=== PATIENT | female | born 1970 | race Two or more races ===

== ENCOUNTER 2020-04-07 11:10 | Emergency (ER) | payer OTHER ==
[2020-04-07 11:19] VITALS: BP 125/79; PULSE 66; TEMP 98.5; BMI 24.9
--- NOTE | 2020-04-07 11:41 | PDOC ---
History of Present Illness - General Chief Complaint: Eye Problem Stated Complaint: HURT EYE Time Seen by Provider: 04/07/20 11:33 History Source: Patient Exam Limitations: No Limitations - History of Present Illness Initial Comments: 04/07/20 11:37 49-year-old female with complaints of of a broken blood vessel to her left thigh. Patient denies any injury use of contacts, excessive coughing, or exerting herself. Patient denies usage of blood thinners or easy bleeding. Is this a multiple visit Asthma Patient?: No Timing/Duration: unsure Associated Symptoms: reports: denies symptoms Past History - Travel History Traveled outside of the country in the last 30 days: No Close contact w/someone who was outside of country & ill: No - Medical History Allergies/Adverse Reactions: Allergies Allergy/AdvReac Type Severity Reaction Status Date / Time No Known Allergies Allergy Verified 04/07/20 11:14 Asthma: No Cancer: No Cardiac Disorders: No COPD: No Diabetes: No HTN: No Seizures: No Thyroid Disease: No - Reproductive History Is Patient Now?: No (#): 3 Para: 2 Cervical CA: No Dysfunctional Uterine Bleeding: No Ectopic : No Endometrial CA: No Polycystic Ovaries: No Therapeutic (s) & number: No Spontaneous : 0 - Immunization History Immunization Up to Date: Yes - Psycho-Social/Smoking History Patient Lives Alone: No Lives with/in: spouse/SO Smoking Status: No Smoking History: Never smoked Years of Tobacco Use: 0 Have you smoked in the past 12 months: No Number of Cigarettes Smoked Daily: 0 Cigars Per Day: 0 - Substance Abuse Hx (Audit-C & DAST Scrn) How often the patient has a drink containing alcohol: Never Score: In Men: 4 or > Positive; In Women: 3 or > Positive: 0 Screen Result (Pos requires Nsg. Audit-10AR): Negative In the last yr the pt used illegal drug/Rx for NonMed reason: No Score: Yes response is considered Positive: 0 Screen Result (Positive result requires Nsg. DAST-10): Negative Review of Systems - Review of Systems Able to Perform ROS?: No Is the patient limited Kinyarwanda proficient: No Constitutional: No: Symptoms Reported HEENTM: Yes: Other (Redness to left eye). No: Eye Pain, Blurred Vision Respiratory: No: Symptoms reported Cardiac (ROS): No: Symptoms Reported ABD/GI: No: Symptoms Reported : No: Symptoms Reported Musculoskeletal: No: Symptoms Reported Integumentary: No: Symptoms Reported Neurological: No: Symptoms reported Hematologic/Lymphatic: No: Symptoms Reported *Physical Exam - Vital Signs Last Vital Signs Temp Pulse Resp BP Pulse Ox 98.5 F 66 18 125/79 98 04/07/20 11:15 04/07/20 11:15 04/07/20 11:15 04/07/20 11:15 04/07/20 11:15 - Physical Exam General Appearance: Yes: Nourished, Appropriately Dressed. No: Apparent Distress HEENT: positive: EOMI, CHRIS, Other (Noted a small raised blood vessel above the left pupil. Surrounding area with subconjunctival hemorrhage. ). negative: Pale Conjunctivae Neck: positive: Supple Extremity: positive: Normal Inspection Integumentary: positive: Normal Color, Warm, Moist Neurologic: positive: Motor Strength 5/5 (ambulatory) Medical Decision Making - Medical Decision Making 04/07/20 11:41 CC: s Left eye with broken blood vessel noted this morning upon awakening. Patient states irritation 1 blinking but otherwise has no visual complaints, headache, or dizziness. Exam: Patient with subconjunctival hemorrhage above the left pupil. Otherwise normal physical exam. Plan: We will discharge with artificial tears based on patient's clinical presentation and complaints Discharge - Discharge Information Problems reviewed: Yes Clinical Impression/Diagnosis: Subconjunctival hemorrhage of left eye Condition: Good Disposition: HOME - Follow up/Referral - Patient Discharge Instructions Patient Printed Discharge Instructions: DI for Subconjunctival Hemorrhage Additional Instructions: Please avoid rubbing the area or placing other things your eyes besides the artificial tears. It should resolve within a few days- weeks Print Language: GEORGIAN - Post Discharge Activity
== END 2020-04-07 12:06 | disposition home or self-care (01) ==
LOC: JERFT 11:10
DX: H11.32 Conjunctival hemorrhage, left eye (principal)
CPT/HCPCS: 99283-25

== ENCOUNTER 2021-02-07 13:48 | Emergency (ER) | payer OTHER ==
[2021-02-07 14:00] VITALS: BP 122/78; PULSE 69; TEMP 97.5; BMI 24.0
== END 2021-02-07 17:18 | disposition left against medical advice (07) ==
LOC: JER 13:48
DX: R10.13 Epigastric pain (principal)
CPT/HCPCS: 99281-25

== ENCOUNTER 2021-02-26 00:48 | Emergency (ER) | payer OTHER ==
[2021-02-26 01:16] VITALS: BP 121/82; PULSE 100; TEMP 97.8; BMI 25.7
[2021-02-26] MEDS ORDERED: FAMOTIDINE 20 MG TABLET PO ONE (01:42)
[2021-02-26] MEDS ORDERED: MAG HYDROX/AL HYDROX/SIMETH -MYLANTA- ORAL SUSPENSION PO ONE (01:42)
[2021-02-26] MEDS ORDERED: MAG HYDROX/AL HYDROX/SIMETH 30 ML UNIT-DOSE CUP ONE (01:47)
[2021-02-26] MEDS ORDERED: FAMOTIDINE 20 MG TABLET ONE (01:47)
[2021-02-26 02:41] LABS: CHLORIDE 108 mmol/L (98-107); SODIUM 139 mmol/L (136-145)
[2021-02-26 02:43] LABS: CALCIUM 8.5 mg/dL (8.5-10.1)
[2021-02-26 02:44] LABS: ALBUMIN 3.8 g/dl (3.4-5.0); ANION GAP 6 MMOL/L (8-16); BLOOD UREA NITROGEN 16.9 mg/dL (7-18); CO2 26 mmol/L (21-32); GLUCOSE,RANDOM 102 mg/dL (74-106)
[2021-02-26 02:47] LABS: CREATININE 0.6 mg/dL (0.55-1.3); SGOT/AST 64 U/L (15-37); SGPT/ALT 63 U/L (13-61)
[2021-02-26 02:49] LABS: BILIRUBIN,TOTAL 0.2 mg/dL (0.2-1); TOT PROT 7.7 g/dl (6.4-8.2)
[2021-02-26 02:50] LABS: ALK PHOS 126 U/L (45-117)
[2021-02-26 03:02] LABS: LIPASE 148 U/L (73-393)
[2021-02-26] MEDS ORDERED: SUCRALFATE 1 GM TABLET (FP) PO SCH (10:00)
== END 2021-02-26 03:38 | disposition home or self-care (01) ==
LOC: JER 00:48
DX: R14.1 Gas pain (principal)
CPT/HCPCS: 36415; 71046-TC-FY; 80053; 82550; 83690; 84484; 93005; 93010; 99285-25

== ENCOUNTER 2021-08-03 04:57 | Emergency (ER) | payer OTHER ==
[2021-08-03 05:12] VITALS: BP 107/65; PULSE 68; TEMP 97.8; BMI 24.0
== END 2021-08-03 05:37 | disposition left against medical advice (07) ==
LOC: JER 04:57
DX: R07.9 Chest pain, unspecified (principal)
CPT/HCPCS: 99281-25

== ENCOUNTER 2022-05-29 12:55 | Emergency (ER) | payer OTHER ==
[2022-05-29 13:04] VITALS: BP 104/69; PULSE 71; RESP 18; TEMP 98.4; BMI 23.1
[2022-05-29] MEDS ORDERED: ACETAMINOPHEN 1000 MG/100 ML BAG IVPB ONE (13:51)
[2022-05-29] MEDS ORDERED: LACTATED RINGERS SOLUTION 1000 ML INFUS.BAG IV ONE (13:51)
[2022-05-29] MEDS ORDERED: ACETAMINOPHEN INJECTION 100 ML IVPB ONE (14:15)
[2022-05-29 16:01] LABS: BASO % 0.5 % (0-2.0); EOS % 1.9 % (0-4.5); HEMATOCRIT 41.1 % (32.4-45.2); HEMOGLOBIN 13.2 GM/dL (10.7-15.3); LYMPH % 29.6 % (8-40); MCH 30.6 pg (25.7-33.7); MCHC 32.1 g/dl (32.0-36.0); MEAN CELL VOLUME 95.4 fl (80-96); MEAN PLT VOLUME 8.8 fl (7.5-11.1); MONO % 6.4 % (3.8-10.2); NEUT % 61.6 % (42.8-82.8); PLATELET COUNT 229 10^3/uL (134-434); RBC 4.31 M/mm3 (3.60-5.2); RDW 13.1 % (11.6-15.6); WHITE BLOOD COUNT 6.5 K/mm3 (4.0-10.0)
[2022-05-29 16:13] LABS: INR 1.09 (0.83-1.09); PROTHROMBIN TIME (PATIENT) 12.5 SEC (9.7-13.0)
[2022-05-29 16:16] LABS: ACTIVATED PTT 29.1 SECONDS (25.2-36.5)
[2022-05-29 16:19] LABS: ALBUMIN 3.4 g/dl (3.4-5.0); BLOOD UREA NITROGEN 7.6 mg/dL (7-18); MAGNESIUM 2.3 mg/dL (1.8-2.4)
[2022-05-29 16:22] LABS: EPI CELLS 23 /uL (0-25.1); HYALINE CASTS 0 /uL (0-3.1); PH,URINE 6.5 (5.0-8.0); URINE APPEARANCE CLEAR; URINE BACTERIA 234 /uL (0-1359); URINE BILIRUBIN NEGATIVE (NEGATIVE); URINE COLOR YELLOW; URINE GLUCOSE (UA) NEGATIVE (NEGATIVE); URINE KETONE NEGATIVE (NEGATIVE); URINE LEUK ESTERASE 1+ (NEGATIVE); URINE NITRITE NEGATIVE (NEGATIVE); URINE PROTEIN NEGATIVE (NEGATIVE); URINE RBC 33 /uL (0-23.9); URINE UROBILINOGEN 0.2 mg/dL (0.2-1.0); URINE WBC 28 /uL (0-25.8)
[2022-05-29 16:22] LABS: CREATININE 0.6 mg/dL (0.55-1.3)
[2022-05-29 16:23] LABS: BILIRUBIN,TOTAL 0.5 mg/dL (0.2-1)
== END 2022-05-29 18:25 | disposition home or self-care (01) ==
LOC: JER 12:55
PROC: 3E0333Z Introduction of Anti-inflammatory into Peripheral Vein, Percutaneous Approach (ICD-10-PCS; principal; 2022-05-29)
DX: K52.9 Noninfective gastroenteritis and colitis, unspecified (principal)
CPT/HCPCS: 0241U-QW; 36415; 74177-TC; 80053; 81003; 83735; 85025; 85610; 85730; 87040; 87086; 93005; 93010; 99285-25; Q9967

== ENCOUNTER 2023-03-10 02:05 | Emergency (ER) | payer OTHER ==
[2023-03-10 02:12] VITALS: BP 102/66; PULSE 65; RESP 18; TEMP 97.9; BMI 24.0
[2023-03-10] MEDS ORDERED: ACETAMINOPHEN 1000 MG/100 ML BAG IVPB ONE (02:35)
[2023-03-10] MEDS ORDERED: ACETAMINOPHEN INJECTION 100 ML IVPB ONE (02:51)
[2023-03-10 03:49] LABS: BASO % 0.8 % (0-2.0); EOS % 3.4 % (0-4.5); HEMATOCRIT 39.8 % (32.4-45.2); HEMOGLOBIN 13.2 GM/dL (10.7-15.3); LYMPH % 46.5 % (8-40); MCH 31.3 pg (25.7-33.7); MCHC 33.2 g/dl (32.0-36.0); MEAN CELL VOLUME 94.3 fl (80-96); MEAN PLT VOLUME 8.2 fl (7.5-11.1); MONO % 5.2 % (3.8-10.2); NEUT % 44.1 % (42.8-82.8); PLATELET COUNT 253 10^3/uL (134-434); RBC 4.23 M/mm3 (3.60-5.2); RDW 13.6 % (11.6-15.6); WHITE BLOOD COUNT 7.7 K/mm3 (4.0-10.0)
[2023-03-10 04:08] LABS: POTASSIUM 4.8 mmol/L (3.5-5.1)
[2023-03-10 04:10] LABS: ALBUMIN 3.6 g/dl (3.4-5.0); CALCIUM 8.9 mg/dL (8.5-10.1)
[2023-03-10 04:11] LABS: BLOOD UREA NITROGEN 15.4 mg/dL (7-18)
[2023-03-10 04:14] LABS: CREATININE 0.6 mg/dL (0.55-1.3)
[2023-03-10 04:15] LABS: BILIRUBIN,TOTAL 0.4 mg/dL (0.2-1); TOT PROT 7.3 g/dl (6.4-8.2)
== END 2023-03-10 05:10 | disposition home or self-care (01) ==
LOC: JER 02:05
PROC: 3E033NZ Introduction of Analgesics, Hypnotics, Sedatives into Peripheral Vein, Percutaneous Approach (ICD-10-PCS; principal; 2023-03-10)
DX: R07.89 Other chest pain (principal); R00.1 Bradycardia, unspecified; R11.0 Nausea
CPT/HCPCS: 36415; 71046-TC-FY; 80053; 84439; 84443; 84484; 85025; 93005; 93010; 99285-25

== ENCOUNTER 2023-06-20 17:08 | Inpatient (IN) | payer OTHER ==
[2023-06-20 17:41] VITALS: BMI 25.4
[2023-06-20] MEDS ORDERED: SODIUM CHLORIDE 1,000 ML IV SCH (18:00)
[2023-06-20] MEDS ORDERED: ACETAMINOPHEN 1000 MG/100 ML BAG IVPB ONE (19:00)
[2023-06-20] MEDS ORDERED: ACETAMINOPHEN INJECTION 100 ML IVPB ONE (19:04)
[2023-06-20 20:27] LABS: BASO % 0.2 % (0-2.0); EOS % 0.4 % (0-4.5); HEMATOCRIT 42.3 % (32.4-45.2); HEMOGLOBIN 13.6 GM/dL (10.7-15.3); MCH 30.6 pg (25.7-33.7); MCHC 32.2 g/dl (32.0-36.0); MEAN CELL VOLUME 95.3 fl (80-96); MEAN PLT VOLUME 8.5 fl (7.5-11.1); MONO % 3.5 % (3.8-10.2); NEUT % 81.9 % (42.8-82.8); PLATELET COUNT 258 10^3/uL (134-434); RBC 4.44 M/mm3 (3.60-5.2); RDW 13.4 % (11.6-15.6); WHITE BLOOD COUNT 12.3 K/mm3 (4.0-10.0)
[2023-06-20 20:32] LABS: INR 1.09 (0.83-1.09); PROTHROMBIN TIME (PATIENT) 12.6 SEC (9.7-13.0)
[2023-06-20 20:35] LABS: ACTIVATED PTT 28.5 SECONDS (25.2-36.5)
[2023-06-20 20:36] LABS: CHLORIDE 105 mmol/L (98-107); POTASSIUM 4.2 mmol/L (3.5-5.1); SODIUM 138 mmol/L (136-145)
[2023-06-20 20:37] LABS: CALCIUM 8.9 mg/dL (8.5-10.1)
[2023-06-20 20:38] LABS: ALBUMIN 3.5 g/dl (3.4-5.0); ANION GAP 8 mmol/L (4-13); CO2 26 mmol/L (21-32)
[2023-06-20 20:39] LABS: BLOOD UREA NITROGEN 21.1 mg/dL (7-18); GLUCOSE,RANDOM 89 mg/dL (74-106)
[2023-06-20 20:41] LABS: CREATININE 0.8 mg/dL (0.55-1.3); SGOT/AST 23 U/L (15-37); SGPT/ALT 32 U/L (13-61)
[2023-06-20 20:42] LABS: CHOLESTEROL 169 mg/dL (50-200)
[2023-06-20 20:44] LABS: BILIRUBIN,TOTAL 0.5 mg/dL (0.2-1); LDL CHOLESTEROL (ONLY SJRH) 86 mg/dL (5-100)
[2023-06-20 20:45] LABS: ALK PHOS 105 U/L (45-117); HDL CHOLESTEROL 61 mg/dL (40-60)
[2023-06-20 21:12] LABS: EPI CELLS 7 /uL (0-25.1); HYALINE CASTS 0 /uL (0-3.1); PH,URINE 7.5 (5.0-8.0); URINE APPEARANCE CLEAR; URINE BACTERIA 71 /uL (0-1359); URINE BILIRUBIN NEGATIVE (NEGATIVE); URINE COLOR YELLOW; URINE GLUCOSE (UA) NEGATIVE (NEGATIVE); URINE KETONE NEGATIVE (NEGATIVE); URINE LEUK ESTERASE 2+ (NEGATIVE); URINE NITRITE NEGATIVE (NEGATIVE); URINE PROTEIN NEGATIVE (NEGATIVE); URINE RBC 16 /uL (0-23.9); URINE UROBILINOGEN 0.2 mg/dL (0.2-1.0); URINE WBC 11 /uL (0-25.8)
[2023-06-21] MEDS ORDERED: CEFTRIAXONE 1,000 MG in DEXTROSE 5%-WATER - 50 ML IVPB ONE (01:38)
[2023-06-21] MEDS ORDERED: CEFTRIAXONE 1 GM/50 ML BAG ONE (01:46)
[2023-06-21 06:44] VITALS: BP 118/64; PULSE 74; TEMP 97.9
[2023-06-21 08:20] VITALS: RESP 14
[2023-06-21] MEDS ORDERED: cefTRIAXone SODIUM 1 GM VIAL ONE (08:42)
[2023-06-21 08:57] LABS: HEMATOCRIT 41.6 % (32.4-45.2); HEMOGLOBIN 13.3 GM/dL (10.7-15.3); MCH 31.1 pg (25.7-33.7); MCHC 32.1 g/dl (32.0-36.0); MEAN PLT VOLUME 8.5 fl (7.5-11.1); PLATELET COUNT 230 10^3/uL (134-434); RBC 4.28 M/mm3 (3.60-5.2); RDW 13.1 % (11.6-15.6); WHITE BLOOD COUNT 8.7 K/mm3 (4.0-10.0)
[2023-06-21 09:07] LABS: POTASSIUM 3.6 mmol/L (3.5-5.1)
[2023-06-21 09:09] LABS: BLOOD UREA NITROGEN 11.9 mg/dL (7-18)
[2023-06-21 09:10] LABS: ALBUMIN 3.5 g/dl (3.4-5.0)
[2023-06-21 09:13] LABS: CREATININE 0.7 mg/dL (0.55-1.3); MAGNESIUM 2.2 mg/dL (1.8-2.4); PHOSPHOROUS 3.5 mg/dL (2.5-4.9)
[2023-06-21 09:14] LABS: BILIRUBIN,TOTAL 0.7 mg/dL (0.2-1); TOT PROT 7.1 g/dl (6.4-8.2)
[2023-06-21] MEDS ORDERED: CEFTRIAXONE 1 GM in DEXTROSE 5%-WATER - 50 ML IVPB SCH (10:00)
[2023-06-21] MEDS ORDERED: ENOXAPARIN NA (PORCINE) 40 MG/0.4 ML DISP.SYRIN SQ SCH (10:00)
== END 2023-06-21 09:41 | disposition left against medical advice (07) | DRG 463 ==
LOC: JERFT 17:08 → JER 17:08 → JERBED 22:10 → OBSVTOIN 06-21 01:32
PROVIDERS: ADMIT Internal Medicine; ATTEND Student in an Organized Health Care Education/Training Program
DX: N39.0 Urinary tract infection, site not specified (principal); I24.89 Other forms of acute ischemic heart disease; D72.829 Elevated white blood cell count, unspecified; G43.909 Migraine, unspecified, not intractable, without status migrainosus; I83.90 Asymptomatic varicose veins of unspecified lower extremity; R20.0 Anesthesia of skin
CPT/HCPCS: 36415; 70450-TC; 80053; 80061; 81003; 82550; 82962; 83036; 83735; 84100; 84443; 84484; 85025; 85027; 85610; 85730; 86850; 86900; 86901; 93005; 93010; 99285-25; G0378

== ENCOUNTER 2024-09-03 02:22 | Emergency (ER) | payer OTHER ==
[2024-09-03 02:38] VITALS: BMI 24.0
[2024-09-03] MEDS ORDERED: ACETAMINOPHEN INJECTION 100 ML ONE (03:21)
[2024-09-03] MEDS ORDERED: FAMOTIDINE 20 MG/50 ML IVPB 20 MG/50 ML MG IVPB ONE (03:21)
[2024-09-03] MEDS: FAMOTIDINE 20 MG/50 ML IVPB 20 MG/50 ML MG IVPB ONE (03:37)
[2024-09-03] MEDS: ACETAMINOPHEN 1000 MG/100 ML BAG IVPB ONE (03:37)
[2024-09-03] MEDS: SODIUM CHLORIDE 0.9% 500 ML INFUS.BAG IV ONE (03:37)
[2024-09-03 03:47] LABS: BASO % 0.6 % (0-2.0); EOS % 2.3 % (0-4.5); HEMATOCRIT 38.3 % (32.4-45.2); HEMOGLOBIN 12.8 GM/dL (10.7-15.3); LYMPH % 36.3 % (8-40); MCH 31.7 pg (25.7-33.7); MCHC 33.3 g/dl (32.0-36.0); MEAN CELL VOLUME 95.1 fl (80-96); MEAN PLT VOLUME 8.2 fl (7.5-11.1); MONO % 4.5 % (3.8-10.2); NEUT % 56.3 % (42.8-82.8); PLATELET COUNT 218 10^3/uL (134-434); RBC 4.03 M/mm3 (3.60-5.2); RDW 13.2 % (11.6-15.6); WHITE BLOOD COUNT 8.7 K/mm3 (4.0-10.0)
[2024-09-03 04:07] LABS: CHLORIDE 107 mmol/L (98-107); INR 1.03 (0.83-1.09); PROTHROMBIN TIME (PATIENT) 11.2 SEC (9.7-13.0); SODIUM 139 mmol/L (136-145)
[2024-09-03 04:09] LABS: ACTIVATED PTT 32.1 SECONDS (25.2-36.5); CALCIUM 8.6 mg/dL (8.5-10.1)
[2024-09-03 04:10] LABS: ALBUMIN 3.4 g/dl (3.4-5.0); BLOOD UREA NITROGEN 18.6 mg/dL (7-18); CO2 27 mmol/L (21-32); GLUCOSE,RANDOM 90 mg/dL (74-106)
[2024-09-03 04:13] LABS: CREATININE 0.7 mg/dL (0.55-1.3); SGOT/AST 41 U/L (15-37); SGPT/ALT 29 U/L (13-61)
[2024-09-03 04:14] LABS: BILIRUBIN,TOTAL 0.3 mg/dL (0.2-1); TOT PROT 6.9 g/dl (6.4-8.2)
[2024-09-03 04:16] LABS: ALK PHOS 93 U/L (45-117)
[2024-09-03 04:29] LABS: ANION GAP 5 mmol/L (4-13); POTASSIUM 6.2 mmol/L (3.5-5.1)
[2024-09-03 05:33] VITALS: BP 105/53; PULSE 70; RESP 18; TEMP 97.5
== END 2024-09-03 05:54 | disposition home or self-care (01) ==
LOC: JER 02:22
PROC: 3E033GC Introduction of Other Therapeutic Substance into Peripheral Vein, Percutaneous Approach (ICD-10-PCS; principal; 2024-09-03)
PROC: 3E033NZ Introduction of Analgesics, Hypnotics, Sedatives into Peripheral Vein, Percutaneous Approach (ICD-10-PCS; 2024-09-03)
DX: R10.13 Epigastric pain (principal); R07.9 Chest pain, unspecified; R11.0 Nausea; Z20.822 Contact with and (suspected) exposure to COVID-19
CPT/HCPCS: 0241U-QW; 36415; 71045-TC-FY; 80053; 83690; 84443; 84484; 85025; 85610; 85730; 93005; 93010; 99285-25; J0131

== ENCOUNTER 2025-02-25 00:37 | Emergency (ER) | payer OTHER ==
[2025-02-25 00:43] VITALS: RESP 18; BMI 24.9
[2025-02-25] MEDS ORDERED: KETOROLAC TROMETHAMINE 15 MG/ML VIAL ONE (01:52)
[2025-02-25 02:09] LABS: ABSOLUTE IMMATURE GRANULOCYTES 0.02 x10^3/uL (0.0-0.031); BASOPHILS # 0.05 x10^3/uL (0.01-0.08); EOSINOPHIL % 3.0 % (0.7-5.8); EOSINOPHILS # 0.28 x10^3/uL (0.04-0.36); MCHC 32.1 g/dl (32.2-35.5); MEAN CELL VOLUME 96.7 fl (79.4-94.8); MEAN PLT VOLUME 9.7 fl (9.4-12.3); MONOCYTE # 0.47 x10^3/uL (0.24-0.86); MONOCYTE % 5.0 % (4.7-12.5); RDW 12.9 % (12.3-16.6)
[2025-02-25] MEDS: KETOROLAC TROMETHAMINE 15 MG/ML VIAL IVPUSH ONE (02:11)
[2025-02-25 02:17] LABS: EPI CELLS 9 /uL (0-25.1); HYALINE CASTS 1 /uL (0-3.1); URINE APPEARANCE CLEAR; URINE BACTERIA 780 /uL (0-1359); URINE BILIRUBIN NEGATIVE (NEGATIVE); URINE COLOR YELLOW; URINE GLUCOSE (UA) NEGATIVE (NEGATIVE); URINE KETONE NEGATIVE (NEGATIVE); URINE LEUK ESTERASE 3+ (NEGATIVE); URINE NITRITE NEGATIVE (NEGATIVE); URINE PROTEIN NEGATIVE (NEGATIVE); URINE RBC 36 /uL (0-23.9); URINE UROBILINOGEN 1.0 mg/dL (0.2-1.0); URINE WBC 282 /uL (0-25.8)
[2025-02-25 02:34] LABS: GLUCOSE,RANDOM 105.0 mg/dL (74-106); TOT PROT 7.1 g/dl (6.4-8.2)
[2025-02-25 02:36] LABS: CO2 26.0 mmol/L (21-32)
[2025-02-25 02:37] LABS: ALK PHOS 127.0 U/L (40-150)
[2025-02-25 02:40] LABS: CREATININE 0.93 mg/dL (0.55-1.3); SGOT/AST 52.0 U/L (5-34); SGPT/ALT 70.0 U/L (0-55)
[2025-02-25] MEDS ORDERED: CEFTRIAXONE 1 GM/50 ML BAG ONE (02:46)
[2025-02-25 03:00] LABS: HCV DIAGNOSTIC IN-HOUSE W/RFLX NON-REACTIVE (NONREACTIVE)
[2025-02-25 03:01] LABS: HIV INTERPRETATION NEGATIVE (NEGATIVE)
[2025-02-25 06:19] VITALS: BP 124/76; PULSE 67; TEMP 98.1
== END 2025-02-25 06:22 | disposition home or self-care (01) ==
LOC: JER 00:37
PROC: 3E0333Z Introduction of Anti-inflammatory into Peripheral Vein, Percutaneous Approach (ICD-10-PCS; principal; 2025-02-25)
PROC: 3E03329 Introduction of Other Anti-infective into Peripheral Vein, Percutaneous Approach (ICD-10-PCS; 2025-02-25)
DX: R10.13 Epigastric pain (principal); R10.30 Lower abdominal pain, unspecified; M54.50 Low back pain, unspecified; N39.0 Urinary tract infection, site not specified; R30.0 Dysuria; R82.998 Other abnormal findings in urine
CPT/HCPCS: 36415; 72131-TC; 74177-TC; 80053; 81003; 83690; 84484; 85025; 86803; 87086; 87389; 99285-25